=== PATIENT | female | born 1945 | race Caucasian/White ===

== ENCOUNTER 2021-08-02 20:10 | Emergency (ER) | payer SELFPAY ==
[~2021-08-02] VITALS: Ht 160 cm; Wt 104.3 kg
[2021-08-02 20:25] VITALS: BP_SYST 163
--- NOTE | 2021-08-02 20:35 | NUR ---
PT BIB SON FOR SHAKING AND FEVER SINCE 1900 TODAY. PT WENT TO [employer]IN[employer] AND BEFORE EATING SHE STARTED SHAKING. PT HAS A HX OF DM, HTN, ANXIETY AND PREVIOUS HX OF CANCER. PT IS A&OX4. STATES NO PAINAT THIS TIME.
--- NOTE | 2021-08-02 20:38 | NUR ---
ER at bedside examining patient.
--- NOTE | 2021-08-02 20:47 | NUR ---
# 20 gauge angiocath placed to FOREARM. Use of asceptic technique. Opsite placed over site. Blood return noted. Blood for lab drawn from site. Flushed with 10 cc of normal saline. No evidence of infiltration noted. Patient tolerated well.
[2021-08-02 21:13] LABS: ANION GAP 7 (5-15); CALCIUM 8.6 mg/dL (8.4-11.0); CHLORIDE 100 mmol/L (98-107); CREATININE 1.04 mg/dL (0.55-1.30); GLUCOSE 276 mg/dL (70-99); POTASSIUM 4.2 mmol/L (3.5-5.1); SODIUM SERUM 134 mmol/L (136-145); UREA NITROGEN, BLOOD 16 mg/dL (8-21)
[2021-08-02 21:18] LABS: ALANINE AMINOTRANSFERASE 24 U/L (12-78); ALBUMIN 3.6 g/dL (3.4-4.8); ASPARTATE AMINOTRANSFERASE 15 U/L (10-37); TOTAL BILIRUBIN 0.4 mg/dL (0.0-1.0)
[2021-08-02 21:24] LABS: C-REACTIVE PROTEIN QUANT 9.4 mg/dL (0-0.5)
[2021-08-02 21:25] LABS: BASOPHILS % (AUTO) 0.2 % (0.0-2.0); EOSINOPHILS % (AUTO) 0.5 % (0.0-4.0); HEMATOCRIT 36.4 % (36-48); HEMOGLOBIN 11.8 g/dL (12.0-16.0); LYMPHOCYTES # (AUTO) 0.7 K/uL (1.0-5.5); LYMPHOCYTES % (AUTO) 10.2 % (20.5-51.5); MEAN CORPUSCULAR HEMOGLOBIN 25 pg (27-31); MEAN CORPUSCULAR HGB CONC 33 % (32-36); MEAN CORPUSCULAR VOLUME 76 fL (79.0-98.0); MONOCYTES # (AUTO) 0.2 K/uL (0.0-1.0); MONOCYTES % (AUTO) 2.3 % (1.7-9.3); NEUTROPHILS # (AUTO) 6.2 K/uL (1.8-7.7); NEUTROPHILS % (AUTO) 86.8 % (40.0-70.0); PLATELET COUNT (AUTO) 209 K/uL (130-430); RED BLOOD CELL COUNT(AUTO) 4.77 MIL/uL (4.2-6.2); RED CELL DISTRIBUTION WIDTH 14.5 % (9.0-15.0); WHITE BLOOD COUNT (AUTO) 7.2 K/uL (4.8-10.8)
[2021-08-02 21:49] LABS: INR 0.9 (0.8-1.2); PROTHROMBIN TIME 9.7 SECS (9.5-12.5)
[2021-08-02] MEDS ORDERED: NITR-85 PO (22:00)
[2021-08-02] MEDS ORDERED: IBUP-1969 PO (22:00)
[2021-08-02] MEDS ORDERED: cefTRIAXone 1 GM IVPB PREMIX 50 ML IV ONE ×2 (22:00→22:02)
[2021-08-02 22:50] LABS: BILIRUBIN,URINE NEGATIVE (NEGATIVE); BLOOD, URINE 1+ (NEGATIVE); CLARITY/URINE CLOUDY (CLEAR); COLOR,URINE YELLOW (YELLOW); GLUCOSE,URINE TRACE (NEGATIVE); KETONES,URINE NEGATIVE (NEGATIVE); LEUKOCYTE ESTERASE ,URINE 2+ (NEGATIVE); NITRITE, URINE POSITIVE (NEGATIVE); PROTEIN URINE 2+ (NEGATIVE); UROBILINOGEN,URINE 0.2 (0.2-1.0)
[2021-08-02 23:09] LABS: BACTERIA,URINE MANY /HPF (None Seen); WBC,URINE 20-50 /HPF (0-3)
--- NOTE | 2021-08-02 23:23 | NUR ---
DR MCCRACKEN IN ROOM TALKING WITH SON ABOUT ADMIT
--- NOTE | 2021-08-02 23:30 | NUR ---
Patient does not wish to proceed with medical care recommended by DR. MCCRACKEN. Patient given information related to possible complications, up to and including , which could occur as a result of leaving hospital at this time. Patient verbalizes understanding of risks involved leaving against medical advice. Patient has signed AMA form.
[2021-08-02] MEDS ORDERED: CEPH250C PO (23:45)
[2021-08-02 23:51] VITALS: BP_SYST 129
--- NOTE | 2021-08-03 15:14 | NUR ---
Received notification from lab, pt's blood culture came back positive for Gram negative Rods, pt was sent home with Keflex and Macrobid, per Dr. Swift here in ER, pt is covered with proper antibiotics.
== END 2021-08-02 23:51 | disposition home or self-care (01) ==
LOC: SED 20:10
DX: N12 Tubulo-interstitial nephritis, not specified as acute or chronic (principal); E10.9 Type 1 diabetes mellitus without complications; Z20.822 Contact with and (suspected) exposure to COVID-19
CPT/HCPCS: 36415; 71045; 80053; 81000; 83605; 85025; 85610; 85730; 86140; 87040; 87086; 87426; 96365; 99284; J0696